=== PATIENT | male | born 1965 ===

== ENCOUNTER 2018-07-10 07:37 | Outpatient (CLI) | payer OTHER | END 2018-07-10 07:48 | disposition home or self-care (01) | LOC: EKG 07:37 | DX: I10 Essential (primary) hypertension (principal) ==

== ENCOUNTER 2018-08-08 09:40 | Day surgery (SDC) | payer OTHER ==
[2018-08-08] MEDS ORDERED: NEURONTIN300 MG PO (17:00)
[2018-08-08] MEDS ORDERED: MIRALAX17 GM PO (17:00)
[2018-08-08] MEDS ORDERED: TRAMADOL HCL50 MG PO (17:00)
[2018-08-08] MEDS ORDERED: ZOFRAN4 MG PO (17:00)
[2018-08-08] MEDS ORDERED: TYLENOL EXTRA500 MG PO (17:00)
== END 2018-08-08 19:20 | disposition home or self-care (01) ==
LOC: CIR.AMB 09:40
DX: K40.30 Unilateral inguinal hernia, with obstruction, without gangrene, not specified as recurrent (principal); K42.9 Umbilical hernia without obstruction or gangrene

== ENCOUNTER 2018-09-06 08:34 | Emergency (ER) | payer OTHER ==
[~2018-09-06] VITALS: Ht 180.3 cm; Wt 90.3 kg
[~2018-09-06 08:34] MED LIST: MIRALAX17 GM PO; NEURONTIN300 MG PO; TRAMADOL HCL50 MG PO; TYLENOL EXTRA500 MG PO; ZOFRAN4 MG PO
== END 2018-09-06 15:54 | disposition home or self-care (01) ==
LOC: ER 08:34
DX: L02.216 Cutaneous abscess of umbilicus (principal); R10.84 Generalized abdominal pain